=== PATIENT | female | born 1970 | race African-American/Black ===

== ENCOUNTER 2019-11-10 17:11 | Emergency (ER) | payer OTHER, MEDICAID, SELFPAY ==
--- NOTE | ~2019-11-10 | XR_ITS ---
XR elbow RT min 3V 11/10/2019 18:14 INDICATION: Right elbow pain PROCEDURE: 3 views right elbow COMPARISON: No prior studies for comparison. FINDINGS: Fracture, dislocation or subluxation is not identified. No significant joint effusion. The soft tissues appear within normal limits. No foreign bodies are identified. IMPRESSION: 1: NO ACUTE BONE OR JOINT ABNORMALITY IDENTIFIED. Reviewed, dictated and finalized at location A.
--- NOTE | ~2019-11-10 | CT_ITS ---
EXAMINATION: CT BRAIN W/O DATE: 11/10/2019 18:09 INDICATION: Headache TECHNIQUE: Computed tomography (CT) of the head was performed without intravenous contrast. The dose- length product was 605.33 mGy-cm. The mA was adjusted according to patient size. Iterative reconstruction technique was employed. COMPARISON: 09/25/2010 FINDINGS: Normal brain parenchymal volume for age. Normal muñoz-white differentiation. No acute intrac ranial hemorrhage, infarction, mass or mass effect. No ventriculomegaly or midline shift. Midline sagittal images demonstrate a normal corpus callosum, c raniovertebral junction and sella turcica. Basilar cisterns are patent. Paranasal sinuses and mastoids are pneumatized. No depressed skull fractures. IMPRESSION: 1. No acute intracranial abnormality. Reviewed, dictated and finalized at location A.
[2019-11-10 17:16] VITALS: BP 145/91; PULSE 73; RESP 20; TEMP 36.1; O2SAT 100
[2019-11-10 18:07] LABS: Basophils Percent Auto 0.4 % (0.2-1.2); Eosinophils Absolute Auto 0.2 K/mm3 (0-0.3); Eosinophils Percent Auto 2.6 % (0-4.4); Hemoglobin 12.5 g/dL (12.0-15.0); Immature Granulocyte Absolute 0.02 K/mm3 (0.00-0.031); Immature Granulocyte Percent A 0.3 % (0-0.5); Immature Platelet Fraction Pct 5.9 % (0.9-11.2); Lymphocytes Absolute Auto 3.43 K/mm3 (0.9-3.2); Mean Corpuscular HGB Conc 31.3 g/dl (32-36); Mean Corpuscular Hemoglobin 26.8 pg (26-34); Mean Corpuscular Volume 85.7 fl (80-100); Mean Platelet Volume 11.1 fl (7.4-10.4); Monocytes Absolute Auto 0.5 K/mm3 (0.1-0.6); Monocytes Percent Auto 7.6 % (2.6-8.5); Neutrophils Absolute Auto 2.8 K/mm3 (1.3-6.7); Neutrophils Percent Auto 40.1 % (45.5-73.1); Platelet Count Result 79 k/mm3 (150-375); Red Blood Count 4.67 M/mm3 (4.2-5.4); Red Cell Distribution Width 15.6 % (11.5-14.5)
[2019-11-10] MEDS: SODIUM CHLORIDE 0.9% IV 1,000 ML 999 ML IV CONT (18:17)
[2019-11-10] MEDS: METOCLOPRAMIDE HCL INJ 10 MG/2 ML VIAL IV PUSH (18:18)
[2019-11-10 18:19] LABS: Blood Urea Nitrogen 17 mg/dL (7-17); CRP 0.7 mg/dL (<1.0); Calcium 8.8 mg/dL (8.4-10.2); Carbon Dioxide 30 mmol/L (22-30); Chloride 104 mmol/L (98-107); Estimated CRCL calculation 83 ml/min; Estimated Glomerular Filt Rate > 60; Glucose 94 mg/dL (65-105); Potassium 3.8 mmol/L (3.4-5.0); Sodium 139 mmol/L (137-145)
[2019-11-10 18:21] VITALS: BP 118/69; PULSE 63; RESP 18; O2SAT 100
[2019-11-10 19:01] VITALS: BP 134/78; PULSE 72; RESP 18; TEMP 36.1; O2SAT 100
[2019-11-10 19:06] LABS: Erythrocyte Sedimentation Rate 56 mm/hr (0-20)
--- NOTE | 2019-11-10 20:15 | ED.HA ---
HPI - Headache General Chief Complaint: Headache Stated Complaint: headache Time Seen by Provider: 11/10/19 17:44 Source: patient Mode of arrival: ambulatory Limitations: no limitations History of Present Illness HPI Narrative: This is a 49 year old female that presents to the ER for intermittent headaches x 2 weeks. Reports right sided dull headaches. Associated with some nausea. Reports she has been drinking coffee to try to help with the headaches. Also reports that she has been having some right medial elbow pain. Reports it shoots some tingling into her arm sometimes. 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 Reports a history of similar occurrence in the elbow for which she took anti-inflammatories with relief. Deneis fever, stiff neck, vision changes, vomiting, numbness, or weakness. Related Data Home Medications Medication Instructions Recorded Confirmed No Home Medications 11/10/19 11/10/19 Allergies Allergy/AdvReac Type Severity Reaction Status Date / Time aspirin Allergy Mild Unknown Unverified 11/10/19 17:49 Review of Systems Review of Systems: Narrative: CONSTITUTIONAL: Denies fever ENT: Denies rhinorrhea, congestion, sore throat GASTROINTESTINAL: Denies vomiting SKIN: Denies rash MUSCULOSKELETAL: Reports joint pain, and myalgia. NEUROLOGIC: Reports headache. Denies numbness, or weakness. All systems reviewed & are unremarkable except as noted in HPI and below PMFSH Past Medical History Medical History (Updated 11/10/19 @ 20:44 by Kristina Flores PA-C) History of ITP Surgical History Surgical History (Updated 11/10/19 @ 20:38 by Kristina Flores PA-C) History of splenectomy Social History Social History (Updated 11/10/19 @ 20:38 by Kristina Flores PA-C) Substance use: never Exam Narrative: Exam Narrative: GENERAL: Well-appearing, well-nourished, and in no acute distress. HEAD: Normocephalic, atraumatic. EYES: PERRLA and EOMI. ENT: Nares clear, no rhinorrhea or epistaxis. Mucous membranes moist. Oropharynx without tonsillar hypertrophy exudate or other lesions. Bilateral TMs pearly muñoz non-bulging NECK: Supple. No adenopathy or masses. Normal ROM CHEST: Clear to auscultation. No respiratory distress. No wheezes rales or rhonchi HEART: Regular rate and rhythm. No murmur heard. Normal peripheral pulses. EXTREMITIES: Normal range of motion. No edema. No erythema or warmth of the extremities SKIN: Warm, dry, no rash. NEURO: No focal deficits. Alert and oriented x3. Cranial nerves II through XII grossly intact. Normal [id number]. Normal [id number] PSYCH: Normal mood and affect Course Consultations Consultation #1: Spoke with Dr. Roberts about patient work-up will follow-up in clinic Date: 11/10/19 Time: 20:49 Consultation #2: Spoke with Dr. Vargas about patient work-up will follow-up in clinic Date: 11/10/19 Time: 20:49 Vital Signs Vital signs: Vital Signs Temperature 97.0 F L 11/10/19 17:16 Pulse Rate 73 11/10/19 17:16 Respiratory Rate 20 11/10/19 17:16 Blood Pressure 145/91 H 11/10/19 17:16 Pulse Oximetry 100 11/10/19 17:16 Temperature 97.0 F L 11/10/19 19:01 Pulse Rate 72 11/10/19 19:01 Respiratory Rate 18 11/10/19 19:01 Blood Pressure 134/78 11/10/19 19:01 Pulse Oximetry 100 11/10/19 19:01 MDM - Headache MDM Narrative Medical decision making narrative: Patient presents to the emergency department for intermittent headaches over the last couple of weeks. She is afebrile and nontoxic-appearing. Patient is neurologically intact. She reports relief of headache after IV fluids, Reglan, and Tylenol. CBC is without leukocytosis. It does show thrombocytopenia with platelets of 79. Metabolic panel is without acute changes. CT brain is without acute changes. Patient also reports some right medial elbow pain. Reports repetitive lifting at her job. Reports history of similar injury for which she took anti-inflammatori
[2019-11-10 21:05] VITALS: BP 132/77; PULSE 88; RESP 18; O2SAT 98
== END 2019-11-10 21:06 | disposition home or self-care (01) ==
PROVIDERS: Physician Assistant; Emergency Provider Emergency Medicine
DX: D69.6 Thrombocytopenia, unspecified (principal); M25.521 Pain in right elbow; Z90.81 Acquired absence of spleen
CPT/HCPCS: 36415; 70450; 73080; 80048; 85025; 85055; 85652; 86140; 96365; 96375; 99284; J0131; J1100; J1200; J2765; J7030

== ENCOUNTER 2020-11-02 10:35 | Outpatient (CLI) | payer OTHER, MEDICAID, SELFPAY ==
--- NOTE | ~2020-11-02 | MM_ITS ---
EXAMINATION: MM screening jossie BI w rey HISTORY: Screening mammogram, family history of breast cancer in her mother. TECHNIQUE: Craniocaudal and mediolateral oblique 3-D tomosynthesis images were obtained and synthetic 2-D images were generated. CAD analysis was submitted and interpreted. COMPARISON: No prior mammogram is available for comparison at this institution. BREAST PARENCHYMAL COMPOSITION: There are scattered areas of fibroglandular density. FINDINGS: There is no evidence of suspicious mass, calcification, or architectural distortion to sugg est malignancy in either breast. IMPRESSION: 1. No mammographic evidence of malignancy. 2. Recommend routine screening mammography in one year. BI-RADS Category 1: Negative Reviewed, dictated and finalized at location A. E DEVELOPER
== END 2020-11-02 10:36 | disposition home or self-care (01) ==
LOC: ANHIMG 10:39
PROVIDERS: PCP Family Medicine; Visit Provider Family Medicine
DX: Z12.31 Encounter for screening mammogram for malignant neoplasm of breast (principal)
CPT/HCPCS: 77063; 77067

== ENCOUNTER 2021-09-18 12:51 | Emergency (ER) | payer OTHER, MEDICAID, SELFPAY ==
--- NOTE | ~2021-09-18 | XR_ITS ---
XR chest 1V portable DATE: 09/18/2021 13:36 INDICATION: Cough, shortness of breath. Covid exposure. TECHNIQUE: Portable AP chest COMPARISON: 09/24/2010 2 view chest FINDINGS: Normal heart size. No hilar or mediastinal enlargement. No pulmonary infiltrate or consol idation, pulmonary vascular congestion or pleural effusion or pneumothorax. Diffuse osteopenia. 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 IMPRESSION: No active cardiopulmonary disease Reviewed, dictated and finalized at location A. WORKER
[2021-09-18 13:06] VITALS: BP 151/82; PULSE 90; RESP 18; TEMP 36.4; O2SAT 100
--- NOTE | 2021-09-18 14:36 | ED.GENADULT ---
HPI - General Adult General Chief complaint: Upper Respiratory Infection <Otoniel Hendrix PA-C - Last Filed: 09/18/21 14:50> Stated complaint: sob after covid exposure <NATTY Andersen Last Filed: 09/18/21 14:50> Time Seen by Provider: 09/18/21 13:18 <Otoniel Hendrix PA-C - Last Filed: 09/18/21 14:50> Source: patient <NATTY Andersen Last Filed: 09/18/21 14:50> Mode of arrival: ambulatory <NATTY Andersen Last Filed: 09/18/21 14:50> Limitations: no limitations <NATTY Andersen Last Filed: 09/18/21 14:50> History of Present Illness HPI narrative: Patient is a 51 yo female with CC of cough, body aches for the past 2-3 days. She reports she is fully vaccinated with a booster, but she was exposed a few days prior to her symptoms beginning. She reports feeling some chest congestion but denies SOB. She denies chest pain, fever, chills, <Otoniel Hendrix PA-C - Last Filed: 09/18/21 14:50> Related Data Allergies/adverse reactions: Allergies Allergy/AdvReac Type Severity Reaction Status Date / Time aspirin Allergy Mild Unknown Verified 09/18/21 13:17 <Otoniel Hendrix PA-C - Last Filed: 09/18/21 14:50> Review of Systems Review of Systems: CONSTITUTIONAL: Denies fever, chills, or sweats. EYES: Denies visual changes, redness, or discharge. ENT: Denies rhinorrhea, congestion, sore throat, or otalgia. CARDIOVASCULAR: Denies chest pain, palpitations, or edema. RESPIRATORY: Reports cough and congestion Denies dyspnea. GASTROINTESTINAL: Denies abdominal pain, nausea, vomiting, or diarrhea. GENITOURINARY: Denies dysuria or hematuria. SKIN: Denies rash or itching. MUSCULOSKELETAL: Denies back pain, joint pain, or myalgia. NEUROLOGIC: Denies headache, numbness, dizziness, or weakness. PSYCHIATRIC: Denies anxiety or depression. <Otoniel Hendrix PA-C - Last Filed: 09/18/21 14:50> [facility] Past Medical History Medical History: Medical History (Updated 09/18/21 @ 14:42 by Otoniel Hendrix PA-C) History of ITP <Otoniel Hendrix PA-C - Last Filed: 09/18/21 14:50> Surgical History Surgical History: Surgical History (Updated 11/10/19 @ 20:38 by Kristina Flores PA-C) History of splenectomy <Otoniel Hendrix PA-C - Last Filed: 09/18/21 14:50> Social History Social History: Social History (Updated 11/10/19 @ 20:38 by Kristina Flores PA-C) Substance use: never <Otoniel Hendrix PA-C - Last Filed: 09/18/21 14:50> Exam Narrative: GENERAL: Well-appearing, well-nourished, and in no acute distress. Not diaphoretic or toxic in appearance. HEAD: Normocephalic, atraumatic. EYES: PERRLA and EOMI. CHEST: Clear to auscultation. No respiratory distress. No wheezes rales or rhonchi. Mild tachypnea. Patient speaking in clear sentences without difficulty. HEART: Regular rate and rhythm. EXTREMITIES: Normal range of motion. No edema. SKIN: Warm, dry, no rash. NEURO: No focal deficits. Alert and oriented x3. PSYCH: Normal mood and affect. <Otoniel Hendrix PA-C - Last Filed: 09/18/21 14:50> Course WOOD BORER/PA Physician Supervision For this patient encounter, I reviewed the WOOD BORER or PA documentation, treatment plan, and medical decision making <Tanmay Lee MD - Last Filed: 09/18/21 16:44> Vital Signs Vital signs: Vital Signs Temperature 97.5 F L 09/18/21 13:06 Pulse Rate 90 09/18/21 13:06 Respiratory Rate 18 09/18/21 13:06 Blood Pressure 151/82 H 09/18/21 13:06 Pulse Oximetry 100 09/18/21 13:06 Temperature 97.5 F L 09/18/21 13:06 Pulse Rate 78 09/18/21 14:52 Respiratory Rate 18 09/18/21 14:52 Blood Pressure 151/82 H 09/18/21 13:06 Pulse Oximetry 100 09/18/21 14:52 <Otoniel Hendrix PA-C - Last Filed: 09/18/21 14:50> Vital Signs Temperature 97.5 F L 09/18/21 13:06 Pulse Rate 90 09/18/21 13:06 Respiratory Rate 18 09/18/21 13:06 Blood Pressure 151/82 H 09/18/21 13:06 Pulse Oximetry 1
[2021-09-18 14:52] VITALS: PULSE 78; RESP 18; O2SAT 100
[2021-09-19 21:55] LABS: SARS-CoV-2 RNA PCR Negative
== END 2021-09-18 14:52 | disposition home or self-care (01) ==
PROVIDERS: Physician Assistant; Emergency Provider Emergency Medicine; PCP Family Medicine
DX: R05.9 Cough, unspecified (principal); Z20.822 Contact with and (suspected) exposure to COVID-19
CPT/HCPCS: 71045; 99283; C9803; U0003; U0005

== ENCOUNTER 2022-05-22 16:58 | Outpatient (CLI) | payer SELFPAY ==
--- NOTE | ~2022-05-22 | XR_ITS ---
XR chest 2V DATE: 05/22/2022 17:19 INDICATION: Preprocedure examination TECHNIQUE: PA and lateral views COMPARISON: 09/18/2021 portable AP chest FINDINGS: Normal heart size. No hilar or mediastinal enlargement. No pulmonary infiltrate or consolid ation, pleural effusion or pulmonary vascular congestion or pneumothorax. There is old pulmonary gran ulomatous disease. IMPRESSION: No active cardiopulmonary disease Reviewed, dictated and finalized at location B.
== END 2022-05-22 16:59 | disposition home or self-care (01) ==
LOC: ANHIMG 17:04
PROVIDERS: PCP Family Medicine; Visit Provider Family Medicine
DX: Z01.818 Encounter for other preprocedural examination (principal)
CPT/HCPCS: 71046

== ENCOUNTER 2023-10-13 01:11 | Day surgery (SDC) | payer OTHER, SELFPAY ==
[2023-09-17 10:27] VITALS: BMI 40.0
--- NOTE | 2023-10-11 10:54 | SUR.PREOP ---
Patient called regarding upcoming procedure. Reviewed preop instructions, appointment times, and procedure prep.
[2023-10-13 07:34] VITALS: BP 120/72; PULSE 84; RESP 18; TEMP 36.1; O2SAT 100
[2023-10-13] MEDS: LACTATED RINGERS 1,000 ML 150 ML IV CONT (07:47)
--- NOTE | 2023-10-13 08:11 | P.PNAN_ITS ---
Anes - Initial Pre Proc Eval Procedure: Operation Date: 10/13/23 09:00 Proposed Procedures p Screening Colonoscopy - Cricket Willoughby MD Date/Time: 10/13/23 08:11 Surgeon: Cricket Willoughby MD Pre Op Diagnosis: neoplasm screening Patient Data Age: 53 Gender: F Height: 1.7 m Weight: 118.3 kg Last Vital Signs Temp 97 F L 10/13/23 07:34 Pulse 84 10/13/23 07:34 Resp 18 10/13/23 07:34 BP 120/72 10/13/23 07:34 Pulse Ox 100 10/13/23 07:34 O2 Del Method Room Air 10/13/23 07:34 Allergies Allergy/AdvReac Type Severity Reaction Status Date / Time aspirin AdvReac Mild Vomiting Verified 10/13/23 07:34 Home Medications Medication Instructions Recorded Confirmed Type hydrocodone 5 mg-acetaminophen 325 1 tablet PO Q4-6H PRN Pain 09/17/23 09/17/23 History mg tablet Patient hx anesthesia problems: none Family hx anesthesia problems: none Results Review: All pre-operative results and documents have been reviewed as part of the pre- operative evaluation. [facility] Past Medical History Medical History (Updated 09/18/21 @ 14:42 by Alexandra HendrixNATTY) History of ITP Surgical History Surgical History (Updated 11/10/19 @ 20:38 by Kristina Flores PA-C) History of splenectomy Social History Social History (Updated 11/10/19 @ 20:38 by Kristina Flores PA-C) Smoking status: Current every day smoker Tobacco type: cigarettes Spiritual care concerns: No Anes - Eval Final PreProcedure Day of Procedure 10/13/23 08:11 Patient weight: morbidly obese Heart: regular rate and rhythm Lungs: clear to auscultation Airway: Mallampati scale class II Neurological: alert and oriented Last oral intake: >/= 8 hours ASA classification: III Emergent: no Anesthetic plan: proceed Anesthesia type and monitoring: general GIVS and standard monitoring Results Review: All pre-operative results and documents have been reviewed as part of the pre- operative evaluation. Informed Consent: The patient's anesthetic plan and its attendant risks and benefits were d iscussed with the patient/family/POA. Questions were solicited and answers provided to the satisfaction of the patient/family/POA.
--- NOTE | 2023-10-13 08:30 | PM.HPGS ---
History of Present Illness History of Present Illness Consent: Risks, benefits, and alternatives have been discussed and questions answered. Patient agrees to proceed with procedure. Chief complaint: neoplasm screening Narrative: Margret Schultz is a 53 year old female here for first screening colonoscopy Review of Systems Constitutional: Constitutional: Denies headache(s) and Denies weakness Eyes: Eyes: Denies blurry vision ENT: Reports Normal hearing present, Denies headache(s) and Denies neck pain Cardiovascular: Cardiovascular: Denies chest pain and Denies dyspnea Respiratory: Respiratory: Denies dyspnea Gastrointestinal: Gastrointestinal: Reports no additional gastrointestinal complaints Genitourinary: Genitourinary: Denies dysuria Musculoskeletal: Musculoskeletal: Denies neck pain Integumentary/Breasts: Skin/Breast: Denies dry skin Neurologic: Reports Normal hearing present, Denies headache(s) and Denies weakness Psychiatric: Psychiatric: Denies anxiety Endocrine: Endocrine: Denies change in body appearance Hematologic/Lymphatic: Hematologic/Lymphatic: Denies easy bleeding Allergic/Immunologic: Allergic/Immunologic: Denies urticaria [facility] Past Medical History Medical History (Updated 10/13/23 @ 08:31 by Cricket Willoughby MD) Colon cancer screening History of ITP Surgical History Surgical History (Updated 11/10/19 @ 20:38 by Kristina Flores PA-C) History of splenectomy Social History Social History (Updated 11/10/19 @ 20:38 by Kristina Flores PA-C) Smoking status: Current every day smoker Tobacco type: cigarettes Spiritual care concerns: No Meds Home Medications and Allergies Home Medications Medication Instructions Recorded Confirmed Type hydrocodone 5 mg-acetaminophen 325 1 tablet PO Q4-6H PRN Pain 09/17/23 09/17/23 History mg tablet Allergies Allergy/AdvReac Type Severity Reaction Status Date / Time aspirin AdvReac Mild Vomiting Verified 10/13/23 07:34 Vital Signs Vital Signs - 24 hr 10/13/23 07:34 Temperature 97 F L Pulse Rate 84 Respiratory Rate 18 Blood Pressure 120/72 Pulse Oximetry 100 Oxygen Delivery Room Air Exam Const: General: comfortable and no acute distress HENMT: Face/Nose/Sinus: Normal nares present Eyes: General: appearance normal, both eyes and all related structures Neck: Neck: no JVD Resp: Auscultation: clear to auscultation bilaterally Cardio: Rate: regular rate Rhythm: regular rhythm GI: Inspection: non-distended GI Palp: Yes Soft to palpation Skin: General skin exam: normal color Neuro: General: gait normal Speech: normal speech Extrem: General: normal to inspection Psych: Mental Status: mental status grossly normal Assessment and Plan Assessment and plan (1) Colon cancer screening: Code(s): Z12.11 - Encounter for screening for malignant neoplasm of colon Status: Acute Assessment and Plan: colonoscopy
[2023-10-13 08:53] VITALS: BP 107/67; PULSE 73; RESP 18; O2SAT 100
[2023-10-13 09:03] VITALS: BP 119/65; PULSE 72; RESP 21; O2SAT 100
[2023-10-13 09:13] VITALS: BP 120/65; PULSE 77; RESP 18; O2SAT 100
== END 2023-10-13 09:20 | disposition home or self-care (01) ==
PROVIDERS: PCP Family Medicine; Visit Provider Internal Medicine Gastroenterology
PROC: 0DJD8ZZ Inspection of Lower Intestinal Tract, Via Natural or Artificial Opening Endoscopic (ICD-10-PCS; CPT 45378; principal; 2023-10-13 09:00)
DX: Z12.11 Encounter for screening for malignant neoplasm of colon (principal); K57.30 Diverticulosis of large intestine without perforation or abscess without bleeding; K63.5 Polyp of colon; K64.8 Other hemorrhoids; F17.210 Nicotine dependence, cigarettes, uncomplicated; E66.01 Morbid (severe) obesity due to excess calories; Z68.41 Body mass index [BMI] 40.0-44.9, adult
CPT/HCPCS: 45385; 88305; 88342; J2704; J7120

== ENCOUNTER 2024-03-09 07:40 | Emergency (ER) | payer OTHER, SELFPAY ==
[2024-03-09] VITALS (12 sets, daily range): BP systolic 113–133; BP diastolic 49–84; PULSE 75–85; RESP 18; TEMP 36.5; O2SAT 93–100
--- NOTE | ~2024-03-09 | CT_ITS ---
CT of the Abdomen and Pelvis: Indication: Abdominal pain Technique: 2.5 mm axial scans were obtained through the abdomen and pelvis following intravenous adm inistration of 100 cc of Omnipaque 350. Dose reduction technique was used on this scan by utilizing a utomated exposure control and iterative reconstruction technique. The dose-length product (DLP) was 1 179.14 mGy-cm. Findings: Scans through the lung bases demonstrate calcified left basilar granuloma. The liver, pancreas, gallbladder, adrenals and kidneys are within normal limits. Status post splenect nancy. No evidence of aortic aneurysm. There are mildly prominent epigastric/gastrohepatic lymph nodes. Shotty peripancreatic lymph nodes are present near the pancreatic head. No bowel obstruction or bowel wall thickening. There is no evidence to suggest acute appendicitis. Images through the pelvis were performed. Urinary bladder unremarkable. No pelvic mass seen. No ascit es. Impression: Shotty/mildly prominent epigastric/atelectatic lymph nodes and peripancreatic lymph nodes. These are nonspecific, and could be reactive. Early lymphoma not completely excluded, though felt to be relatively less likely. Correlate clinically. Consider follow-up exam as indicated. Reviewed, dictated and finalized at [facility]. Impression: Shotty/mildly prominent epigastric/atelectatic lymph nodes and peripancreatic l ymph nodes. These are nonspecific, and could be reactive. Early lymphoma not completely exc luded, though felt to be relatively less likely. Correlate clinically. Consider follow-up exam as indicated.
--- NOTE | ~2024-03-09 | XR_ITS ---
Portable chest x-ray Comparison: 05/22/2022 Clinical History: Upper abdominal pain Findings: Stable left basilar probable calcified pulmonary nodule. No other pulmonary abnormality se en. Cardiomediastinal silhouette is stable. Bones and soft tissues are unremarkable. Impression: No acute abnormality. Reviewed, dictated and finalized at [facility]. Impression: No acute abnormality.
[2024-03-09 08:00] LABS: Basophils Percent Auto 0.2 % (0.2-1.2); Eosinophils Absolute Auto 0.1 K/mm3 (0-0.3); Eosinophils Percent Auto 2.4 % (0-4.4); Hematocrit 37.6 % (37.0-47.0); Hemoglobin 12.2 g/dL (12.0-15.0); Immature Granulocyte Absolute 0.01 K/mm3 (0.00-0.031); Immature Granulocyte Percent A 0.2 % (0-0.5); Immature Platelet Fraction Pct 5.9 % (0.9-11.2); Lymphocytes Absolute Auto 1.94 K/mm3 (0.9-3.2); Lymphocytes Percent Auto 35.7 % (18.3-44.2); Mean Corpuscular HGB Conc 32.4 g/dl (32-36); Mean Corpuscular Hemoglobin 26.8 pg (26-34); Mean Corpuscular Volume 82.5 fl (80-100); Mean Platelet Volume 10.7 fl (7.4-10.4); Monocytes Absolute Auto 0.3 K/mm3 (0.1-0.6); Monocytes Percent Auto 5.5 % (2.6-8.5); Platelet Count Result 123 k/mm3 (150-375); Red Blood Count 4.56 M/mm3 (4.2-5.4); Red Cell Distribution Width 16.5 % (11.5-14.5); White Blood Count 5.4 K/mm3 (4.5-10.0)
[2024-03-09 08:09] LABS: Alanine Aminotransferase 11 U/L (6-35); Alkaline Phosphatase 89 U/L (38-126); Anion Gap 8 mmol/L (4-12); Aspartate Amino Transferase 27 U/L (14-36); Bilirubin,Total 0.5 mg/dL (0.2-1.3); Blood Urea Nitrogen 14 mg/dL (7-17); Calcium 9.2 mg/dL (8.4-10.2); Carbon Dioxide 23 mmol/L (22-30); Chloride 110 mmol/L (98-107); Estimated CRCL calculation 85 ml/min; Estimated Glomerular Filt Rate > 60; Glucose 101 mg/dL (65-110); Lipase 56 U/L (23-300); Potassium 3.5 mmol/L (3.4-5.0); Sodium 141 mmol/L (137-145)
--- NOTE | 2024-03-09 08:18 | ED.ABDPAIN ---
HPI - Abdominal Pain General Chief Complaint: Abdominal Pain Stated Complaint: abd pain Time Seen by Provider: 03/09/24 08:15 Source: patient History of Present Illness HPI narrative: 53 years old female came to the emergency room by private car from work complaining of mid epigastric pain started 3-4 days ago, intermittent, worse with eating, better without eating. She denies any fever, chills, nausea, vomiting, diarrhea, constipation, radiation pain, or history of abdominal surgery. History of arthritis on chronic meloxicam for over 1 year. She smokes cigarettes, denies drinking alcohol or marijuana use. Currently patient feeling okay. Related Data Home Medications Medication Instructions Recorded Confirmed hydrocodone 5 mg-acetaminophen 325 1 tablet PO Q4-6H PRN Pain 09/17/23 09/17/23 mg tablet Allergies Allergy/AdvReac Type Severity Reaction Status Date / Time aspirin AdvReac Mild Vomiting Verified 03/09/24 07:46 Review of Systems Review of Systems: All systems reviewed & are unremarkable except as noted in HPI and below PMFSH Past Medical History Medical History Colon cancer screening History of ITP Surgical History Surgical History History of splenectomy Social History Social History Smoking status: Current every day smoker Tobacco type: cigarettes Spiritual care concerns: No Exam Narrative: General appearance: Well-developed, well-nourished Skin: Normal color Head: Normocephalic, nontraumatic Eyes: Clear conjunctiva ENT: Oropharynx normal, ears normal, nose normal Neck: Supple, nontender Chest and respiratory: Airway patent, no respiratory distress, no accessory muscle use Heart: Regular rate/rhythm Abdomen: Soft, mild epigastric tenderness, no guarding or rebound, no organomegaly, quiet bowel sounds Vascular: Normal peripheral pulses, normal capillary refill. 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, no gross motor deficit Course Vital Signs Vital signs: Vital Signs Temperature 36.5 C 03/09/24 07:43 Pulse Rate 85 03/09/24 07:43 Respiratory Rate 18 03/09/24 07:43 Blood Pressure 133/82 03/09/24 07:43 Pulse Oximetry 98 03/09/24 07:43 Oxygen Delivery Room Air 03/09/24 07:43 Temperature 36.5 C 03/09/24 07:43 Pulse Rate 85 03/09/24 07:43 Respiratory Rate 18 03/09/24 07:43 Blood Pressure 133/82 03/09/24 07:43 Pulse Oximetry 98 03/09/24 07:43 Oxygen Delivery Room Air 03/09/24 07:43 MDM - Abdominal Pain MDM Narrative Medical decision making narrative: Differential diagnosis include gastritis, GERD, pancreatitis, constipation, colitis, diverticulitis Blood workup today showed platelet of 123 otherwise insignificant abnormality, urinalysis showed no evidence of infection Chest x-ray showed no acute cardiopulmonary abnormality CT abdomen and pelvis with IV contrast showed epigastric and peripancreatic lymph nodes, nonspecific and could be reactive. Early lymphoma not completely excluded. Gastritis, esophagitis, GERD are my concern secondary to chronic use of meloxicam. My plan to discharge patient on Protonix and to follow up with Dr. Tolbert as needed. Patient received GI cocktail prior to discharge with remarkable improvement. Differential Diagnosis Differential diagnosis: Likely other (As above) Medical Records Attestation: I reviewed the patient's medical records. Lab Data Attestation: I reviewed the patien
--- NOTE | 2024-03-09 08:19 | ECG_ITS ---
Test Date: 2024-03-09 09:04:24 Measurements Intervals [place] Rate: 54 P: 16 SC: 164 QRS: -12 QRSD: 85 T: 6 QT: 432 QTc: 413 Interpretive Statements SINUS BRADYCARDIA BORDERLINE T WAVE ABNORMALITY- INFERIOR LEADS BORDERLINE ECG No previous ECG available for comparison Electronically Signed On 03-09-2024 09:09:17 CDT by Adan Morgan D.O.
[2024-03-09 08:26] LABS: Appearance Urine Clear (Clear); Bilirubin Urine Negative (Negative); Blood Urine Negative (Negative); Color Urine Yellow (Yellow); Glucose Urine UA Negative (Negative); Ketones Urine Trace mg/dL (Negative); Leukocyte Esterase Ur Negative LEU/UL (Negative); Nitrate Urine Negative (Negative); Protein Urine Negative (Negative); Specific Grav Ur 1.024 (1.001-1.035); pH Urine 5.5 (5.0-9.0)
[2024-03-09 08:48] LABS: Add Urine Microscopic? NO
[2024-03-09] MEDS: SODIUM CHLORIDE 0.9% IV 1,000 ML 999 ML IV CONT (08:49)
[2024-03-09] MEDS: ONDANSETRON INJ 4 MG/2 ML VIAL IV PUSH (08:50)
[2024-03-09] MEDS: HYDROmorphone HCL INJ (*CRX) 1 MG/ML SYR 0.5 MG IV PUSH (08:50)
[2024-03-09 09:14] LABS: Lactic Acid Reflex 0.7 mmol/L (0.7-2.0)
== END 2024-03-09 09:57 | disposition home or self-care (01) ==
PROVIDERS: Emergency Provider Emergency Medicine; PCP Family Medicine
DX: R10.13 Epigastric pain (principal); M19.90 Unspecified osteoarthritis, unspecified site; F17.210 Nicotine dependence, cigarettes, uncomplicated; Z90.81 Acquired absence of spleen; Z79.1 Long term (current) use of non-steroidal anti-inflammatories (NSAID); R00.1 Bradycardia, unspecified; R94.31 Abnormal electrocardiogram [ECG] [EKG]; R93.5 Abnormal findings on diagnostic imaging of other abdominal regions, including retroperitoneum
CPT/HCPCS: 36415; 71045; 74177; 80053; 81003; 81025; 83605; 83690; 85025; 85055; 93005; 96361; 96374; 96375; 99284; J1170; J2405; J7030; Q9967

== ENCOUNTER 2024-03-21 16:09 | Outpatient (CLI) | payer OTHER, SELFPAY ==
--- NOTE | ~2024-03-21 | MM_ITS ---
EXAMINATION: MM screening jossie BI w rey HISTORY: Screening TECHNIQUE: Craniocaudal and mediolateral oblique 3-D tomosynthesis images were obtained and synthetic 2-D images were generated. CAD analysis was submitted and interpreted. COMPARISON: 11/02/2020 BREAST PARENCHYMAL COMPOSITION: There are scattered areas of fibroglandular density. FINDINGS: There is no evidence of suspicious mass, calcification, or architectural distortion to sugg est malignancy in either breast. There has been no suspicious interval change. IMPRESSION: 1. No mammographic evidence of malignancy. 2. Recommend routine screening mammography in one year. BI-RADS Category 1: Negative Reviewed, dictated and finalized at location B.
== END 2024-03-21 16:10 | disposition home or self-care (01) ==
LOC: ANHIMG 16:15
PROVIDERS: PCP Family Medicine
DX: Z12.31 Encounter for screening mammogram for malignant neoplasm of breast (principal)
CPT/HCPCS: 77063; 77067

== ENCOUNTER 2024-04-13 07:03 | Emergency (ER) | payer OTHER, SELFPAY ==
--- NOTE | ~2024-04-13 | XR_ITS ---
XR chest 1V portable Ordering provider: Tanmay Lee MD History: 53 years Female with . cp, TINGLING TO JAW X TODAY . Comparison: March 09, 2024 FINDINGS: MEDIASTINUM: The cardiac silhouette is not enlarged. LUNGS: No infiltrates, effusions or pneumothorax. Slightly prominent bronchovascular markings in the lower lobes. OTHER: No free air under the diaphragm. Degenerative changes of the spine. IMPRESSION: No acute cardiopulmonary pathology. Reviewed, dictated and finalized at location A.
[2024-04-13 06:58] VITALS: BP 119/86; PULSE 90; RESP 23; TEMP 36.5; O2SAT 98
--- NOTE | 2024-04-13 07:07 | ECG_ITS ---
Test Date: 2024-04-13 07:13:58 Measurements Intervals [place] Rate: 84 P: 20 NM: 158 QRS: -21 QRSD: 86 T: 19 QT: 362 QTc: 429 Interpretive Statements SINUS RHYTHM BORDERLINE LEFT AXIS DEVIATION [QRS AXIS < -20] MODERATE VOLTAGE CRITERIA FOR LVH, CONSIDER NORMAL VARIANT [MEETS CRITERIA IN ONE OF: R(aVL), S(V1), R(V5), R(V5/V6)+S(V1)] Compared to ECG 03/09/2024 09:04:24 NO SIGNIFICANT CHANGES Electronically Signed On 04-13-2024 09:57:58 CDT by Rachel Alonso M.D.
[2024-04-13 07:10] VITALS: O2SAT 100
[2024-04-13 07:13] VITALS: PULSE 84
[2024-04-13 07:34] LABS: Basophils Percent Auto 0.5 % (0.2-1.2); Eosinophils Absolute Auto 0.1 K/mm3 (0-0.3); Eosinophils Percent Auto 1.3 % (0-4.4); Hematocrit 37.2 % (37.0-47.0); Hemoglobin 12.2 g/dL (12.0-15.0); Immature Granulocyte Absolute 0.01 K/mm3 (0.00-0.031); Immature Granulocyte Percent A 0.2 % (0-0.5); Immature Platelet Fraction Pct 6.5 % (0.9-11.2); Lymphocytes Absolute Auto 2.39 K/mm3 (0.9-3.2); Lymphocytes Percent Auto 39.8 % (18.3-44.2); Mean Corpuscular HGB Conc 32.8 g/dl (32-36); Mean Corpuscular Hemoglobin 27.5 pg (26-34); Monocytes Absolute Auto 0.4 K/mm3 (0.1-0.6); Monocytes Percent Auto 6.8 % (2.6-8.5); Neutrophils Absolute Auto 3.1 K/mm3 (1.3-6.7); Neutrophils Percent Auto 51.4 % (45.5-73.1); Platelet Count Result 102 k/mm3 (150-375); Red Blood Count 4.43 M/mm3 (4.2-5.4); Red Cell Distribution Width 16.3 % (11.5-14.5)
--- NOTE | 2024-04-13 07:37 | ED.CHESTPAIN ---
HPI - Chest Pain General Chief Complaint: Chest Pain Stated Complaint: chest tightness History of Present Illness HPI narrative: 53-year-old female present to the emergency department for evaluation for chest tightness. Patient states she was having some emotional distress last night did not sleep well patient states he did not start developing chest pain until she was at work. Upon arrival to the emergency department patient states the pain as resolved. Patient still upset due to her being written up at work yesterday. Patient denies any prior history of CVA, ACS. Patient does have a family history of congestive heart failure and stroke Related Data Home Medications Medication Instructions Recorded Confirmed hydrocodone 5 mg-acetaminophen 325 1 tablet PO Q4-6H PRN Pain 09/17/23 09/17/23 mg tablet Allergies Allergy/AdvReac Type Severity Reaction Status Date / Time aspirin AdvReac Mild Vomiting Verified 04/13/24 07:15 Review of Systems Review of Systems: All systems reviewed & are unremarkable except as noted in HPI and below PMFSH Past Medical History Medical History Colon cancer screening History of ITP Surgical History Surgical History History of splenectomy Social History Social History Smoking status: Current every day smoker Tobacco type: cigarettes Spiritual care concerns: No Exam Narrative: APPEARANCE: Well appearing, no pain, no distress, well-nourished. HEAD: normocephalic, atraumatic. EYES: PERRLA/EOMI, conjunctivae clear. NOSE: Normal no drainage EARS:TMS clear with good light reflex. THROAT: Pharynx clear, no exudate. NECK: Supple. No adenopathy, no masses. RESPIRATORY: Airway patent, respirations nonlabored. Clear to auscultation bilaterally, no rales, rhonchi, wheezing. CARDIOVASCULAR: Regular rate and rhythm without murmurs rubs or gallops. ABDOMINAL: Soft, nontender, nondistended, normal bowel sounds MUSCULOSKELETAL: Moves all extremities. Strength/ROM intact, No edema, No calf tenderness. NEURO: Alert. Cranial nerves II through XII intact. Good gait. Good coordination SKIN: Warm, dry. Normal Color PSYCHIATRIC: Normal affect/mood. Course Course Emergency Course: Patient was updated the results of her workup was encouraged close follow-up with her primary care physician for additional outpatient cardiac testing Vital Signs Vital signs: Vital Signs Temperature 97.7 F 04/13/24 06:58 Pulse Rate 90 04/13/24 06:58 Respiratory Rate 23 H 04/13/24 06:58 Blood Pressure 119/86 04/13/24 06:58 Pulse Oximetry 98 04/13/24 06:58 Oxygen Delivery Room Air 04/13/24 06:58 Temperature 97.6 F 04/13/24 11:40 Pulse Rate 82 04/13/24 11:40 Respiratory Rate 20 04/13/24 11:40 Blood Pressure 100/64 04/13/24 11:40 Pulse Oximetry 100 04/13/24 11:40 Oxygen Delivery Room Air 04/13/24 07:10 MDM - Chest Pain MDM Narrative Medical decision making narrative: 53 old female presenting to the emergency department for evaluation for anxiety and associated chest pain. Patient has been chest pain-free in the emergency department. Patient is afebrile with no leukocytosis and a stable hemoglobin of 12.2. Patient had negative serial EKGs and negative serial troponins. Patient was updated the results of workup patient was comfortable plan for discharge and close follow-up with Cardiology for additional outpatient cardiac testing. All questions and concerns were addressed. Differential Diagnosis Differential diagnosis: Likely atypical chest pain, st elevation myocardial infarction, costochondritis, chest pain and biliary colic Lab Data Attestation: I reviewed the patient's lab results. 04/13/24 07:26 04/13/24 07:26 Labs: Lab Results 04/13/24 04/13/24 Range/Units 07:26 10:
[2024-04-13 07:44] LABS: Alanine Aminotransferase 13 U/L (6-35); Albumin Level 3.8 g/dL (3.5-5.1); Alkaline Phosphatase 83 U/L (38-126); Anion Gap 9 mmol/L (4-12); Aspartate Amino Transferase 19 U/L (14-36); Bilirubin,Total 0.3 mg/dL (0.2-1.3); Blood Urea Nitrogen 15 mg/dL (7-17); Calcium 8.8 mg/dL (8.4-10.2); Carbon Dioxide 25 mmol/L (22-30); Chloride 102 mmol/L (98-107); Estimated CRCL calculation 91 ml/min; Estimated Glomerular Filt Rate > 60; Glucose 108 mg/dL (65-110); Potassium 3.7 mmol/L (3.4-5.0); Sodium 136 mmol/L (137-145)
[2024-04-13 07:54] LABS: Troponin I < 0.012 ng/mL (0.000-0.034)
[2024-04-13 07:59] LABS: Partial Thromboplastin Time 29.2 Seconds (22.3-36.8); Prothrombin Time 13.2 Seconds (11.1-14.7)
[2024-04-13 09:13] VITALS: BP 121/57; PULSE 80; RESP 18; O2SAT 100
--- NOTE | 2024-04-13 09:59 | ECG_ITS ---
Test Date: 2024-04-13 10:17:10 Measurements Intervals [place] Rate: 78 P: 45 OR: 164 QRS: -16 QRSD: 81 T: 22 QT: 382 QTc: 436 Interpretive Statements SINUS RHYTHM Compared to ECG 04/13/2024 07:13:58 No significant changes Electronically Signed On 04-13-2024 13:37:15 CDT by Rachel Alonso M.D.
[2024-04-13 11:00] LABS: Troponin I < 0.012 ng/mL (0.000-0.034)
[2024-04-13 11:29] VITALS: BP 121/85; PULSE 75; RESP 22; O2SAT 99
[2024-04-13 11:40] VITALS: BP 100/64; PULSE 82; RESP 20; TEMP 36.4; O2SAT 100
== END 2024-04-13 11:43 | disposition home or self-care (01) ==
PROVIDERS: Emergency Provider Emergency Medicine; PCP Family Medicine
DX: F41.9 Anxiety disorder, unspecified (principal); R07.9 Chest pain, unspecified
CPT/HCPCS: 36415; 71045; 80053; 84484; 85025; 85055; 85610; 85730; 93005; 99284